=== PATIENT | female | born 1955 | race Caucasian/White ===

== ENCOUNTER → 2018-12-30 | Outpatient (REF) | payer OTHER ==
[2018-12-30 16:26] LABS: ALBUMIN 4.2 GM/DL (3.2-5.2); ALT/SGPT 22 U/L (12-78); BILIRUBIN,TOTAL 0.3 MG/DL (0.2-1.0); BLOOD UREA NITROGEN 19 MG/DL (7-18); CALCIUM LEVEL 9.8 MG/DL (8.8-10.2); CARBON DIOXIDE LEVEL 31 MEQ/L (21-32); CHLORIDE LEVEL 108 MEQ/L (98-107); CHOLESTEROL LEVEL 232 MG/DL (<200); CHOLESTEROL RISK RATIO 2.494 (<5); CREATININE FOR GFR 0.83 MG/DL (0.55-1.30); GLOMERULAR FILTRATION RATE > 60.0 (>45); GLUCOSE, FASTING 81 MG/DL (70-100); HDL CHOLESTEROL 93 MG/DL (>40); LDL CHOLESTEROL 125 MG/DL (<100); NON-HDL-C 139 MG/DL; POTASSIUM SERUM 3.8 MEQ/L (3.5-5.1); SODIUM LEVEL 143 MEQ/L (136-145); THYROID STIMULATING HORMONE 0.964 uIU/ML (0.358-3.740); TRIGLYCERIDES LEVEL 71 MG/DL (<150)
== END ==
LOC: M SFHCPLAZ 14:15
PROVIDERS: ATTEND Nurse Practitioner Adult Health
DX: Z00.00 Encounter for general adult medical examination without abnormal findings (principal); Z13.220 Encounter for screening for lipoid disorders

== ENCOUNTER → 2019-09-20 | Outpatient (REF) | payer OTHER ==
[2019-09-20 13:03] LABS: PLATELET COUNT, AUTOMATED 267 10^3/uL (150-450)
[2019-09-20 13:15] LABS: INR 0.97; PARTIAL THROMBOPLASTIN TIME 33.7 SECONDS (25.0-38.4); PROTHROMBIN TIME 12.6 SECONDS (11.8-14.0)
== END ==
LOC: M LABDRAW1 09:45
PROVIDERS: ATTEND Physician Assistant
DX: D69.1 Qualitative platelet defects (principal); Z01.812 Encounter for preprocedural laboratory examination; M47.22 Other spondylosis with radiculopathy, cervical region

== ENCOUNTER → 2019-11-16 | Outpatient (CLI) | payer OTHER | LOC: M LABSMTC 10:15 | PROVIDERS: ATTEND Physical Medicine & Rehabilitation | DX: Z03.818 Encounter for observation for suspected exposure to other biological agents ruled out (principal); Z11.59 Encounter for screening for other viral diseases ==

== ENCOUNTER → 2020-04-11 | Outpatient (CLI) | payer OTHER | LOC: M LABSMTC 13:30 | PROVIDERS: ATTEND Physical Medicine & Rehabilitation | DX: Z01.812 Encounter for preprocedural laboratory examination (principal); Z20.828 Contact with and (suspected) exposure to other viral communicable diseases ==

== ENCOUNTER → 2020-07-19 | Outpatient (CLI) | payer OTHER ==
[2020-07-19 15:50] LABS: BLOOD UREA NITROGEN 22 MG/DL (7-18); CREATININE FOR GFR 0.61 MG/DL (0.55-1.30); GLOMERULAR FILTRATION RATE > 60.0 (>45)
== END ==
LOC: M PLALAB 14:03
PROVIDERS: ATTEND Physical Medicine & Rehabilitation
DX: M47.22 Other spondylosis with radiculopathy, cervical region (principal); M50.31 Other cervical disc degeneration, high cervical region; M50.320 Other cervical disc degeneration, mid-cervical region, unspecified level

== ENCOUNTER → 2023-01-07 | Outpatient (CLI) | payer MEDICARE ==
[2023-01-07 16:14] LABS: ALBUMIN 3.9 G/DL (3.2-5.2); ALKALINE PHOSPHATASE 84 U/L (46-116); ALT/SGPT 20 U/L (7.0-40); AST/SGOT 12 U/L (<34); BILIRUBIN,TOTAL 0.4 MG/DL (0.3-1.2); BLOOD UREA NITROGEN 19 MG/DL (9-23); CALCIUM LEVEL 9.7 MG/DL (8.3-10.6); CARBON DIOXIDE LEVEL 28 MMOL/L (20-31); CHLORIDE LEVEL 107 MMOL/L (98-107); CHOLESTEROL LEVEL 230 MG/DL (<200); CHOLESTEROL RISK RATIO 2.38 (<5); CREATININE FOR GFR 0.61 MG/DL (0.55-1.30); GLOMERULAR FILTRATION RATE > 60.0 (>45); GLUCOSE, FASTING 89 MG/DL (74-106); HDL CHOLESTEROL 96.5 MG/DL (>40); LDL CHOLESTEROL 122.1 MG/DL (<100); NON-HDL-C 133.5 MG/DL; POTASSIUM SERUM 3.9 MMOL/L (3.5-5.1); SODIUM LEVEL 141 MMOL/L (136-145); THYROID STIMULATING HORMONE 0.883 uIU/ML (0.55-4.78); TOTAL 25(OH) VITAMIN D 70.6 NG/ML (20.0-100.0); TOTAL PROTEIN 6.6 G/DL (5.7-8.2); TRIGLYCERIDES LEVEL 57 MG/DL (<150)
== END ==
LOC: M PLALAB 13:01
PROVIDERS: ATTEND Nurse Practitioner Adult Health
DX: E55.9 Vitamin D deficiency, unspecified (principal); Z13.220 Encounter for screening for lipoid disorders; Z13.29 Encounter for screening for other suspected endocrine disorder; Z79.899 Other long term (current) drug therapy

== ENCOUNTER → 2023-03-12 | Outpatient (REF) | payer MEDICARE | LOC: M SFHCPLAZ 13:09 | PROVIDERS: ATTEND Family Medicine | DX: L85.8 Other specified epidermal thickening (principal); C44.629 Squamous cell carcinoma of skin of left upper limb, including shoulder ==

== ENCOUNTER → 2023-06-18 | Outpatient (REF) | payer MEDICARE | LOC: M SFHCPLAZ 17:20 | PROVIDERS: ATTEND Family Medicine | DX: C44.719 Basal cell carcinoma of skin of left lower limb, including hip (principal); L57.0 Actinic keratosis ==

== ENCOUNTER → 2023-07-30 | Outpatient (REF) | payer MEDICARE | LOC: M SFHCPLAZ 17:51 | PROVIDERS: ATTEND Family Medicine | DX: L90.5 Scar conditions and fibrosis of skin (principal); D18.01 Hemangioma of skin and subcutaneous tissue ==

== ENCOUNTER → 2023-10-01 | Outpatient (REF) | payer MEDICARE | LOC: M SFHCPLAZ 15:05 | PROVIDERS: ATTEND Family Medicine | DX: L98.9 Disorder of the skin and subcutaneous tissue, unspecified (principal) ==

== ENCOUNTER → 2024-02-18 | Outpatient (REF) | payer MEDICARE | LOC: M SFHCPLAZ 15:02 | PROVIDERS: ATTEND Family Medicine | DX: L82.1 Other seborrheic keratosis (principal); D04.62 Carcinoma in situ of skin of left upper limb, including shoulder; L98.8 Other specified disorders of the skin and subcutaneous tissue ==

== ENCOUNTER → 2024-04-28 | Outpatient (REF) | payer MEDICARE | LOC: M SFHCPLAZ 15:45 | PROVIDERS: ATTEND Family Medicine | DX: C44.712 Basal cell carcinoma of skin of right lower limb, including hip (principal) ==

== ENCOUNTER → 2025-01-12 | Outpatient (CLI) | payer MEDICARE ==
[2025-01-12 13:10] LABS: PLATELET COUNT, AUTOMATED 355 10^3/uL (150-450)
[2025-01-12 13:51] LABS: ALT/SGPT 25 U/L (7.0-40); AST/SGOT 23 U/L (<34); CALCIUM LEVEL 10.0 MG/DL (8.3-10.6); CARBON DIOXIDE LEVEL 27 MMOL/L (20-31); CHLORIDE LEVEL 105 MMOL/L (98-107); CHOLESTEROL LEVEL 246 MG/DL (<200); CHOLESTEROL RISK RATIO 3.13 (<5); CREATININE FOR GFR 0.69 MG/DL (0.55-1.30); GLOMERULAR FILTRATION RATE > 90.0 (>45); LDL CHOLESTEROL 153.4 MG/DL (<100); NON-HDL-C 167.6 MG/DL; POTASSIUM SERUM 4.0 MMOL/L (3.5-5.1); SODIUM LEVEL 145 MMOL/L (136-145); TRIGLYCERIDES LEVEL 71 MG/DL (<150)
[2025-01-12 13:53] LABS: FREE T4 1.24 NG/DL (0.89-1.76); TOTAL 25(OH) VITAMIN D 99.8 NG/ML (20.0-100.0)
== END ==
LOC: M PLALAB 11:13
PROVIDERS: ATTEND Nurse Practitioner Adult Health
DX: Z00.00 Encounter for general adult medical examination without abnormal findings (principal); Z13.220 Encounter for screening for lipoid disorders; E55.9 Vitamin D deficiency, unspecified; E03.9 Hypothyroidism, unspecified